=== PATIENT | male | born 1970 ===

== ENCOUNTER 2017-12-24 13:32 | Emergency (ER) | payer SELFPAY ==
[2017-12-24 13:37] VITALS: O2SAT 97
--- NOTE | 2017-12-24 13:48 | ED PDOC ---
HPI: Psych/Substance Abuse Time Seen by Provider: 12/24/17 13:44 Chief Complaint (Nursing): Alcohol Ingestion Chief Complaint (Provider): etoh History Per: Patient, EMS Additional Complaint(s): 47 y/o male presents with EMS for alcohol intoxication. Patient ambulated to police station and said he wanted to come to ED for "IV bacardi." Patient denies any drug use. He offers no acute complaints. PMD: none Past Medical History Reviewed: Historical Data, Nursing Documentation, Vital Signs Vital Signs: Last Vital Signs Temp 98.7 F 12/24/17 13:36 Pulse 108 H 12/24/17 13:36 Resp 20 12/24/17 13:36 BP 165/113 H 12/24/17 13:36 Pulse Ox 97 12/24/17 13:36 - Medical History PMH: No Chronic Diseases - Family History Family History: States: No Known Family Hx - Living Arrangements Living Arrangements: With Family - Social History Current smoker - smoking cessation education provided: No Alcohol: Social Drugs: Denies - Allergies Allergies/Adverse Reactions: Allergies Allergy/AdvReac Type Severity Reaction Status Date / Time No Known Allergies Allergy Verified 12/24/17 13:38 Review of Systems ROS Statement: Except As Marked, All Systems Reviewed And Found Negative Constitutional: Negative for: Fever Cardiovascular: Negative for: Chest Pain Gastrointestinal: Negative for: Nausea, Vomiting Neurological: Negative for: Headache Psych: Positive for: Other (etoh) Physical Exam - Reviewed Nursing Documentation Reviewed: Yes Vital Signs Reviewed: Yes - Physical Exam Appears: Positive for: Well, Non-toxic, No Acute Distress Skin: Positive for: Normal Color. Negative for: Rash Eye Exam: Positive for: Normal appearance Cardiovascular/Chest: Positive for: Regular Rate, Rhythm Respiratory: Positive for: Normal Breath Sounds. Negative for: Respiratory Distress Extremity: Positive for: Normal ROM Neurologic/Psych: Positive for: Alert, Oriented, Gait (steady), Other ( Intoxicated, answers questions appropriately) - ECG O2 Sat by Pulse Oximetry: 97 Pulse Ox Interpretation: Normal Medical Decision Making Medical Decision Makin:50 pm: 47-year-old intoxicated male. Patient is awake, alert, has steady gait. Plan: CBC BMP BAL UDS 2:05 pm: Patient left ED before treatment complete Disposition - Clinical Impression Clinical Impression: Alcohol ingestion - Patient ED Disposition Is Patient to be Admitted: No - Disposition Disposition: Left W/O Treatment (Left before treatment complete) Disposition Time: 14:05 Condition: UNKNOWN Forms: [employer] (Urdu)
[2017-12-24 14:09] VITALS: BP 148/92; PULSE 86; RESP 18; TEMP 98.6
== END 2017-12-24 14:07 | disposition left against medical advice (07) ==
LOC: H.ER 13:32
DX: F10.129 Alcohol abuse with intoxication, unspecified (principal)